=== PATIENT | male | born 1980 | race Caucasian/White ===

== ENCOUNTER → 2019-02-02 | Outpatient (CLI) | payer SELFPAY ==
--- NOTE | 2019-02-02 12:08 | RADIOLOGY IMAGING REPORT ---
FACILITY: [facility] [place] PATIENT NAME: Jovanny Magallanes : 1980 MR: [id number] V: [id number] EXAM DATE: ORDERING PHYSICIAN: CORETTA FALCON TECHNOLOGIST: Location: [facility] Patient: Jovanny Brown : 1980 Visit/Account:[id number] Date of Sevice: 02/02/2019 EXAMINATION: CT head without IV contrast HISTORY: Trauma, branch fell on head. COMPARISON: None. TECHNIQUE: Contiguous axial images were obtained from the skull base to the vertex without intraven ous contrast. Sagittal and coronal reformatted images are also submitted. One of the following dose optimization techniques was utilized in the performance of this exam: Autom ated exposure control; adjustment of the mA and/or kV according to the patient's size; or use of an i terative reconstruction technique. Specific details can be referenced in the facility's radiology C T exam operational policy. FINDINGS: Brain volume: Normal. Ventricles: Normal. Acute ischemic changes: None. Hemorrhage: No acute intracranial hemorrhage. Masses/edema: None. Villarreal-white: Negative. White matter: Normal. Vessels: Negative. Extra-axial: Negative. Calvarium/scalp: Scalp contusion at the right frontal vertex. No acute fracture. Skull base/visualized face: Negative. Visualized sinuses/orbits: Mucous retention cysts in both maxillary sinuses measuring up to 2.4 cm o n the left. Mild nasal septal deviation to the left. IMPRESSION: 1. Right scalp contusion without acute fracture, hemorrhage or intracranial mass lesion. No CT evide nce of acute infarct. 2. Mucous retention cysts of both maxillary sinuses, left greater than right. Report Dictated By: Lakshmi Quintana MD at 02/02/2019 11:59 AM Report E-Signed By: Lakshmi Quintana MD at 02/02/2019 12:02 PM WSN:[id number]
== END ==
LOC: CT 11:19
PROVIDERS: ATTEND Nurse Practitioner Family
DX: S00.03XA Contusion of scalp, initial encounter (principal)
CPT/HCPCS: 70450